=== PATIENT | male | born 1970 | race American Indian/Alaskan Native ===

== ENCOUNTER 2018-05-02 04:09 | Emergency (ER) | payer MEDICARE ==
[2018-05-02] MEDS ORDERED: MOTRIN ONE (04:30)
[2018-05-02] MEDS ORDERED: MOTRIN PO ONE (06:30)
--- NOTE | 2018-05-02 07:50 | Emergency Department Report ---
ED ENT HPI - General Chief complaint: Dental/Oral Stated complaint: TOOTHACHE Time Seen by Provider: 05/02/18 07:28 Source: patient Mode of arrival: Ambulatory Limitations: No Limitations - History of Present Illness MD complaint: tooth pain -: unknown (on and off for over 6 months) Location: tooth # 1 - Area pain, dental erosion, dental caries 2 - Area of pain, dental erosions, dental caries, no adjacent gingival swelling Improves with: none Worsens with: eating, medication Context- Dental: history of dental caries, poor dental care Associated Symptoms: toothache. denies: gum swelling, sore throat, tinnitus, discharge from ear, rhinorrhea - Related Data Previous Rx's Medication Instructions Recorded Last Taken Type Amoxicillin 500 mg PO TID #21 capsule 05/02/18 Unknown Rx Chlorhexidine Mouthwash [Peridex] 15 ml MM BID #1 bottle 05/02/18 Unknown Rx Ketorolac [Toradol] 10 mg PO Q6H PRN #15 tablet 05/02/18 Unknown Rx Lidocaine Viscous 2% 5 ml MM Q3H PRN #120 udc 05/02/18 Unknown Rx Allergies Allergy/AdvReac Type Severity Reaction Status Date / Time No Known Allergies Allergy Unverified 05/02/18 04:24 ED Dental HPI - General Chief complaint: Dental/Oral Stated complaint: TOOTHACHE Time Seen by Provider: 05/02/18 07:28 Source: patient Mode of arrival: Ambulatory Limitations: No Limitations - Related Data Previous Rx's Medication Instructions Recorded Last Taken Type Amoxicillin 500 mg PO TID #21 capsule 05/02/18 Unknown Rx Chlorhexidine Mouthwash [Peridex] 15 ml MM BID #1 bottle 05/02/18 Unknown Rx Ketorolac [Toradol] 10 mg PO Q6H PRN #15 tablet 05/02/18 Unknown Rx Lidocaine Viscous 2% 5 ml MM Q3H PRN #120 udc 05/02/18 Unknown Rx Allergies Allergy/AdvReac Type Severity Reaction Status Date / Time No Known Allergies Allergy Unverified 05/02/18 04:24 ED Review of Systems ROS: Stated complaint: TOOTHACHE Other details as noted in HPI Constitutional: denies: chills, fever Eyes: denies: eye pain, eye discharge, vision change ENT: dental pain. denies: ear pain, throat pain Respiratory: denies: cough, shortness of breath, wheezing Cardiovascular: denies: chest pain, palpitations Endocrine: no symptoms reported Gastrointestinal: denies: abdominal pain, nausea, diarrhea Genitourinary: denies: urgency, dysuria Musculoskeletal: denies: back pain, joint swelling, arthralgia Skin: denies: rash, lesions Neurological: denies: headache, weakness, paresthesias Psychiatric: denies: anxiety, depression Hematological/Lymphatic: denies: easy bleeding, easy bruising ED Past Medical Hx - Past Medical History Previous Medical History?: Yes Additional medical history: Decreased circulation left lower leg. - Surgical History Additional Surgical History: Surgery left lower leg. - Social History Smoking Status: Never Smoker Substance Use Type: None - Medications Home Medications: Home Medications Medication Instructions Recorded Confirmed Last Taken Type Amoxicillin 500 mg PO TID #21 capsule 05/02/18 Unknown Rx Chlorhexidine Mouthwash [Peridex] 15 ml MM BID #1 bottle 05/02/18 Unknown Rx Ketorolac [Toradol] 10 mg PO Q6H PRN #15 tablet 05/02/18 Unknown Rx Lidocaine Viscous 2% 5 ml MM Q3H PRN #120 udc 05/02/18 Unknown Rx ED Physical Exam - General Limitations: No Limitations General appearance: alert, in no apparent distress - Head Head exam: Present: atraumatic, normocephalic - Eye Eye exam: Present: normal appearance - ENT ENT exam: Present: mucous membranes moist, other (6 some dental caries and erosions at teeth #17 extremity 15 1617 and 18 with adjacent erythema but no swelling. Tongue and uvula are are normal size and midline. Airway is patent. No drooling. Normal voice) - Neck Neck exam: Present: normal inspection - Respiratory Respiratory exam: Present: normal lung sounds bilaterally. Absent: respiratory distress - Cardiovascular Cardiovascular Exam: Present: regular rate, normal rhythm. Absent: systolic murmur, diastolic murmur, rubs, gallop - GI/Abdominal GI/Abdominal exam: Present: soft, normal bowel sounds - Rectal Rectal exam: Present: deferred - Extremities Exam Extremities exam: Present: normal inspection - Back Exam Back exam: Present: normal inspection - Neurological Exam Neurological exam: Present: alert, oriented X3 - Psychiatric Psychiatric exam: Present: normal affect, normal mood - Skin Skin exam: Present: warm, dry, intact, normal color. Absent: rash ED Course Vital Signs 05/02/18 04:17 Temperature 97.2 F L Pulse Rate 84 Respiratory 16 Rate Blood Pressure 117/79 O2 Sat by Pulse 100 Oximetry Critical care attestation.: If time is entered above; I have spent that time in minutes in the direct care of this critically ill patient, excluding procedure time. ED Disposition Clinical Impression: Dentalgia Disposition: DC-01 TO HOME OR SELFCARE Is pt being admited?: No Does the pt Need Aspirin: No Condition: Stable Instructions: Dental Caries (ED), Toothache (ED) Referrals: PRIMARY CARE, [Primary Care Provider] - 3-5 Days [facility] [Outside] - 3-5 Days
[2018-05-02] MEDS ORDERED: NORCO 5/325 PO STA (08:23)
[2018-05-02 08:36] VITALS: BP 131/82
--- NOTE | 2018-05-02 22:10 | Emergency Department Report ---
Blank Doc - Documentation Documentation: Patient brought back prescription for Toradol that was given to him by NERISSA Aguilar. Patient reports that his insurance does not cover Toradol and it will cover meloxicam or diclofenac's. This provider wrote for diclofenac 50 mg every 8 hours when necessary for pain dispense 15.
== END 2018-05-02 08:35 | disposition home or self-care (01) ==
LOC: ED 04:09
DX: K08.89 Other specified disorders of teeth and supporting structures (principal)
CPT/HCPCS: 99282